=== PATIENT | male | born 1990 | race Caucasian/White ===

== ENCOUNTER 2018-03-15 18:14 | Observation (INO) | payer SELFPAY ==
[2018-03-15] MEDS ORDERED: Sodium Chloride 0.9% 1,000 ML IV STA (18:41)
--- NOTE | 2018-03-15 19:03 | ED PDOC ---
HPI: Trauma/Fall - HPI Time Seen by Provider: 03/15/18 18:29 Chief Complaint (Nursing): Abnormal Skin Integrity Chief Complaint (Provider): Abnormal Skin Integrity History Per: Family History/Exam Limitations: no limitations Onset/Duration Of Symptoms: Days (x6) Injury Occurred (Timing): Days Ago: (6) Additional Complaint(s): 28 y/o male with a PMHx of HTN brought to the ED by family for evaluation of bleeding and drainage from a chest tube placed on the left side. Family states patient was recently admitted in a hospital in [place] on 03/09/2018 and discharged yesterday (03/14/2018) after falling from 2 stories. Noted on discharge report from hospital in [place], patient had multiple injuries including: bleeding between the lungs and chest wall, closed fracture of temporal bone, subdural hematoma, subarachnoid hematoma, fracture of thoracic transverse process, broken collarbone, popped lung, fracture of multiple ribs, cocaine abuse and amphetamine abuse. Family state patient was in a coma, intubated and had a chest tube placed on the left side. Family reports patient is staying with them here in [place] for care due to extensive injuries. Patient is here today for excessive leaking where chest tube was placed. In addition, family states patient's mentation is "off" as the patient is unsure where he is at times and confuses other family members with one another. Patient is currently taking oxycodone, Tylenol and Bactrim. Denies antibiotic use, allergies to medications and diagnosed psychiatric disorders. PMD: Do June Past Medical History Reviewed: Historical Data, Nursing Documentation, Vital Signs Vital Signs: Last Vital Signs Temp 99.4 F 03/15/18 18:22 Pulse 104 H 03/15/18 18:22 Resp 16 03/15/18 18:22 BP 131/85 03/15/18 18:22 Pulse Ox 100 03/15/18 18:22 - Medical History PMH: HTN - Surgical History Surgical History: No Surg Hx - Family History Family History: States: Unknown Family Hx - Social History Drugs: Cocaine - Allergies Allergies/Adverse Reactions: Allergies Allergy/AdvReac Type Severity Reaction Status Date / Time No Known Allergies Allergy Verified 03/15/18 18:22 Review of Systems ROS Statement: Except As Marked, All Systems Reviewed And Found Negative Constitutional: Positive for: Other (Leaking around where chest tube was placed. ) Physical Exam - Physical Exam Appears: Positive for: No Acute Distress Head Exam: Positive for: NORMAL INSPECTION (Multiple abrasions and scabs noted to the left posterior head and face as well as to the right cheek. ) Eye Exam: Positive for: EOMI, PERRL Neck: Positive for: Normal (Non-tender. ) Cardiovascular/Chest: Positive for: Other (Multiple abrasions noted on the chest. Open superficial would with trace like fluid noted around the 4th and 5th rib on the left chest wall. ) Gastrointestinal/Abdominal: Positive for: Other (Multiple abrastion noted on the chest. Superficial open wound with trace like fluid noted around the 4th and 5th lateral rib on the left chest wall. Scabs and abrasions located on the right chest wall. ) Back: Positive for: Other (Multiple abrasions and scabs to the left upper back and triceps) Extremity: Positive for: Normal ROM, Other (Few scattered scabs noted on the bilateral extremities) - Laboratory Results Result Diagrams: 03/15/18 19:02 03/15/18 19:02 Interpretation Of Abn Labs: 14.1 wbc, elevated liver enzymes mild - ECG O2 Sat by Pulse Oximetry: 100 (RA) Pulse Ox Interpretation: Normal - CT Scan/US ct head and chst Other Rad Studies (CT/US): Read By Radiologist Other Rad Interpretation: pneumatocoele post chest tube; no bleed in brain; hx of trauma findings - Progress ED Course And Treament: 2015: Spoke with surgery resident. Will consult with Dr. Cheema. 2055: Dr. Cheema spoke with resident who saw pt. Does not feel any acute treatment needed. Will fu pt. Pt. needs admit for concussion monitoring. 2099: Spoke with Dr. Recinos. Will admit. Tele obs. Medical Decision Making Medical Decision Making: Time: 1839 Plan: -- Urine Drug Screen -- CT Chest w/o contrast -- CT Head w/o contrast -- CXR Portable -- Sodium Chloride IV 1000 mls/hr Time: 1901 Plan: -- Alcohol Serum -- CMP -- Troponin I -- CBC with differentials -- PTT -- Prothrombin Time Time: 2024 CT CHEST RESULTS FINDINGS: Lungs: There is reported history of recent chest tube removal. A tiny amount of air in the left pleural space in the apex. Diffuse alveolar density is noted in the left lower lobe with a small left pleural effusion. More focal soft tissue density containing areas of gas are noted in the left lower lobe suggesting a potential posttraumatic pneumatocele. If there are clinical signs of infection, this could be a abscess as well. Heart: Normal. No cardiomegaly. No pericardial effusion. Aorta: Normal. No aortic aneurysm. Lymph nodes: Unremarkable. No enlarged lymph nodes. Bones/joints: Unremarkable. No acute fracture. Soft tissues: Unremarkable. IMPRESSION: There is reported history of recent chest tube removal. A tiny amount of air in the left pleural space in the apex. Diffuse alveolar density is noted in the left lower lobe with a small left pleural effusion. More focal soft tissue density containing areas of gas are noted in the left lower lobe suggesting a potential posttraumatic pneumatocele. If there are clinical signs of infection, this could be a abscess as well. Thank you for allowing us to participate in the care of your patient. Dictated and Authenticated by: Shaan Carney MD 03/15/2018 8:25 PM Eastern Time ([place] & [place]) Scribe Attestation: Documented by Lorri Dang acting as a scribe for Dr. Ulysses Doan MD. Provider Scribe Attestation: All medical record entries made by the Scribe were at my direction and personally dictated by me. I have reviewed the chart and agree that the record accurately reflects my personal performance of the history, physical exam, medical decision making, and the department course for this patient. I have also personally directed, reviewed, and agree with the discharge instructions and disposition. Disposition - Clinical Impression Clinical Impression: Concussion, Wound drainage - Patient ED Disposition Is Patient to be Admitted: Yes Counseled Patient/Family Regarding: Studies Performed, Diagnosis - Disposition Disposition Time: 21:02 Condition: FAIR - POA Present On Arrival: Falls Or Trauma (hx)
[2018-03-15 19:05] LABS: BASO # 0.1 K/uL (0.0-0.2); BASO % 0.7 % (0.0-2.0); EOS # 0.5 K/uL (0.0-0.7); EOS % 3.6 % (0.0-4.0); HEMOGLOBIN 12.3 g/dL (12.0-18.0); LYMPH # 1.6 K/uL (1.0-4.3); LYMPH % 11.3 % (20.0-40.0); MEAN CELL VOLUME 96.1 fl (80.0-94.0); MEAN CORPUSCULAR HGB CONC 34.4 g/dL (33.0-37.0); MEAN PLATELET VOLUME 8.4 fl (7.2-11.7); MONO # 1.5 K/uL (0.0-0.8); MONO % 10.5 % (0.0-10.0); NEUT # 10.4 K/uL (1.8-7.0); NEUT % 73.9 % (50.0-75.0); RBC 3.72 Mil/uL (4.40-5.90); RED CELL DISTRIBUTION WIDTH 13.7 % (11.5-14.5); WHITE BLOOD COUNT 14.1 K/uL (4.8-10.8)
[2018-03-15 19:12] LABS: INR 1.3
[2018-03-15 19:15] LABS: PARTIAL THROMBOPLASTIN TIME 33.6 Seconds (25.6-37.1)
[2018-03-15 19:33] LABS: ALBUMIN 3.7 g/dL (3.5-5.0); CALCIUM 9.3 mg/dL (8.4-10.2); GFR AFRICAN-AMERICAN > 60; GFR NON-AFRICAN AMERICAN > 60
[2018-03-15 19:39] LABS: ALT/SGPT 218 U/L (21-72); AST/SGOT 232 U/L (17-59); BLOOD UREA NITROGEN 14 mg/dl (9-20)
--- NOTE | 2018-03-15 21:24 | CP.PCM.CON ---
History of Present Illness - History of Present Illness History of Present Illness: CT surgery consult for Dr. Peyman Hoffman, PGY-2 Pt S & E at bedside at 2049 28M w/PMH sig for polytrauma s/p throwing himself off a 2 story structure because "someone was coming to get him" on 03/09- hospitalized in [place] with L chest tube insertion and ETT placement consulted for serosanguious output from left chest tube insertion site. Pt reports that he was discharged from hospital yesterday with Left chest tube removed on day of discharge. Noted to have serosanguinous discharge from insertion site, which increased today. Pt was brought to ED for evaluation of drainage and AMS per sister. Pt reports back pain, chills, weakness. Denies chest pain, SOB, N & V, changes in bowel or bladder habits, other complaints. IN ED- Chest CT w/post traumatic pneumatocele, no pneumothorax. Afebrile, leukocytosis of 14.1. Hgb WNL. CT brain with findings compatible with recent head trauma. 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 absent: Fever - EENT Eyes: absent: Change in Vision Ears: absent: Dizziness Nose/Mouth/Throat: absent: Sore Throat - Cardiovascular Cardiovascular: absent: Chest Pain - Respiratory Respiratory: absent: Cough, Pain on Inspiration - Gastrointestinal Gastrointestinal: absent: Abdominal Pain, Nausea, Vomiting - Genitourinary Genitourinary: absent: Change in Urinary Stream - Musculoskeletal Musculoskeletal: Back Pain. absent: Numbness, Tingling - Integumentary Integumentary: Wounds Additional comments: abdominal wound- superificial over right lower quadrant, approximately 4cm long , visible granulation tissue at base. Small, approximately 2cm x 3 cm superficial wound over epigastric area, with some punctate bleeding Multiple superficial abrasions over anterior chest wall, upper and lower extremities, right lower cheek- most have scabs over them - Neurological Neurological: absent: Numbness - Psychiatric Psychiatric: absent: Change in Appetite Past Patient History - Past Social History Drugs: Cocaine - CARDIAC Hx Hypertension: Yes - PULMONARY Hx Asthma: Yes - PSYCHIATRIC Hx Substance Use: Yes - SURGICAL HISTORY Hx Surgeries: Yes - ANESTHESIA Hx Anesthesia: Yes Hx Anesthesia Reactions: No Meds Allergies/Adverse Reactions: Allergies Allergy/AdvReac Type Severity Reaction Status Date / Time No Known Allergies Allergy Verified 03/15/18 18:22 - Medications Medications: Current Medications Morphine Sulfate (Morphine) 2 mg IV ONCE ONE Stop: 03/15/18 20:54 Physical Exam - Constitutional Appears: Non-toxic, No Acute Distress - Head Exam Head Exam: NORMOCEPHALIC. absent: ATRAUMATIC (multiple scars over face) - Eye Exam Eye Exam: EOMI, Normal appearance - ENT Exam ENT Exam: Mucous Membranes Moist, Normal Exam - Neck Exam Neck exam: Positive for: Full Rom, Normal Inspection - Respiratory Exam Respiratory Exam: Clear to Auscultation Bilateral, NORMAL BREATHING PATTERN. absent: Chest Wall Tenderness Additional comments: left midaxillary line with draining CT incision site- linear wound- serosanguious output staining dressing. Non tender, no erythema noted, no fluctuance or induration - Cardiovascular Exam Cardiovascular Exam: REGULAR RHYTHM, +S1, +S2 - GI/Abdominal Exam GI & Abdominal Exam: Soft. absent: Distended (obese), Firm, Guarding, Tenderness - Extremities Exam Extremities exam: Negative for: normal inspection (multiple abrasions and small superficial wounds with scabs over bilateral upper and lower extremities) - Neurological Exam Neurological exam: Alert, CN II-XII Intact, Oriented x3 - Psychiatric Exam Psychiatric exam: Normal Affect, Normal Mood - Skin Skin Exam: Dry, Warm Additional comments: see other systems for skin findings Results - Vital Signs Recent Vital Signs: Last Vital Signs Temp 99.4 F 03/15/18 18:22 Pulse 104 H 03/15/18 18:22 Resp 18 03/15/18 20:30 BP 137/78 03/15/18 20:30 Pulse Ox 100 03/15/18 21:02 - Labs Result Diagrams: 03/15/18 19:02 03/15/18 19:02 Labs: Laboratory Results - last 24 hr 03/15/18 03/15/18 03/15/18 19:02 19:02 19:02 WBC 14.1 H RBC 3.72 L Hgb 12.3 Hct 35.8 MCV 96.1 H MCH 33.0 H MCHC 34.4 RDW 13.7 Plt Count 381 MPV 8.4 Neut % (Auto) 73.9 Lymph % (Auto) 11.3 L [place] % (Auto) 10.5 H Eos % (Auto) 3.6 Baso % (Auto) 0.7 Neut # (Auto) 10.4 H Lymph # (Auto) 1.6 [place] # (Auto) 1.5 H Eos # (Auto) 0.5 Baso # (Auto) 0.1 PT 14.0 H INR 1.3 APTT 33.6 Sodium 137 Potassium 3.9 Chloride 98 Carbon Dioxide 31 H Anion Gap 12 BUN 14 Creatinine 0.6 L Est GFR ( Amer) > 60 Est GFR (Non-Af Amer) > 60 Random Glucose 103 Calcium 9.3 Total Bilirubin 1.6 H AST 232 H ALT 218 H Alkaline Phosphatase 157 H Troponin I < 0.0120 Total Protein 7.6 Albumin 3.7 Globulin 3.9 Albumin/Globulin Ratio 1.0 Alcohol, Quantitative < 10 Assessment & Plan - Assessment and Plan (Free Text) Assessment: 28 M w/leaking CT insertion site s/p polytrauma with resulting Left sided pneumothorax Plan: Admit to medicine for obs No CT surgical intervention at this time Dressing changes PRN Further mgmt as per primary team JULIANA attending Yasmin, PGY-2 - Date & Time Date: 03/15/18 Time: 20:40
[2018-03-16 00:27] LABS: BARBITURATES, UR NEGATIVE (NEGATIVE); BENZODIAZEPINES, UR NEGATIVE (NEGATIVE); OPIATES, UR POSITIVE (NEGATIVE); PHENCYCLIDINE, UR POSITIVE (NEGATIVE)
[2018-03-16] MEDS ORDERED: Pneumococcal 23-Valent Vaccine IM ONE (06:30)
--- NOTE | 2018-03-16 06:43 | CP.PCM.PCO ---
Physician Communication Note - Physician Communication Note Physician Communication Note: I was called by RN for headache and back pain Assessment/Plan - Assessment and Plan (Free Text) Assessment: S: 28 y/o M s/p fall, c/o headache and back pain, 710 severity. Last morphine 2mg was given at 3:00 am O: AAO, verbally responsive, follows command A/P: 28 y/o male s/p fall - Morphine 1mg STAT - Continue management as per admitting attending
[2018-03-16 07:06] LABS: HEMOGLOBIN 11.1 g/dL (12.0-18.0); MEAN CELL VOLUME 96.6 fl (80.0-94.0); MEAN CORPUSCULAR HEMOGLOBIN 32.6 pg (27.0-31.0); MEAN CORPUSCULAR HGB CONC 33.7 g/dL (33.0-37.0); RBC 3.42 Mil/uL (4.40-5.90); RED CELL DISTRIBUTION WIDTH 13.8 % (11.5-14.5); WHITE BLOOD COUNT 13.4 K/uL (4.8-10.8)
[2018-03-16 07:19] LABS: ALB/GLOB RATIO 0.9 (1.0-2.1); ALBUMIN 3.2 g/dL (3.5-5.0); ALT/SGPT 185 U/L (21-72); AST/SGOT 153 U/L (17-59); BLOOD UREA NITROGEN 8 mg/dl (9-20); CALCIUM 8.7 mg/dL (8.4-10.2); GFR AFRICAN-AMERICAN > 60; GFR NON-AFRICAN AMERICAN > 60
[2018-03-16] MEDS ORDERED: oxyCODONE 10 mg ER Tab (oxyCONTIN) PO PRN (07:39)
[2018-03-16] MEDS ORDERED: oxyCODONE 5 mg Immediate Release Tab PO PRN (07:40)
--- NOTE | 2018-03-16 07:45 | CP.PCM.PN ---
Subjective - Date & Time of Evaluation Date of Evaluation: 03/16/18 Time of Evaluation: 07:44 - Subjective Subjective: CT surgery progress note for Dr. Peyman Hoffman, PGY-2 Pt S & E at bedside at 0700 Pt reports CALL and back pain. Denies N & V, F & C, chest pain, SOB. Per nursing - continues with saturating drainage from Left chest tube insertion site. Has been getting pain medications throughout night regularly Objective - Vital Signs/Intake and Output Vital Signs (last 24 hours): Temp Pulse Resp BP Pulse Ox 99 F 90 18 127/73 97 03/16/18 05:00 03/16/18 05:00 03/16/18 05:00 03/16/18 05:00 03/16/18 05:00 - Medications Medications: Current Medications Acetaminophen (Tylenol 325mg Tab) 650 mg PO Q4 PRN PRN Reason: Pain, Mild (1-3), headache Docusate Sodium (Colace) 100 mg PO DAILY PRN PRN Reason: Constipation Enoxaparin Sodium (Lovenox) 40 mg SC DAILY KVNG PRN Reason: Protocol Oxycodone HCl (Oxycontin Extended Release Tab) 10 mg PO Q12 PRN PRN Reason: Pain, moderate (4-7) Stop: 03/19/18 09:01 Oxycodone HCl (Oxycodone Immediate Release Tab) 5 mg PO Q6 PRN PRN Reason: for breakthrough pain - Labs Labs: 03/16/18 05:24 03/16/18 05:24 PT 14.0 Seconds (9.8-13.1) H 03/15/18 19:02 INR 1.3 03/15/18 19:02 APTT 33.6 Seconds (25.6-37.1) 03/15/18 19:02 - Constitutional Appears: Non-toxic, No Acute Distress - Head Exam Head Exam: absent: ATRAUMATIC, NORMAL INSPECTION Additional comments: multiple superficial skin lacs with scabs - Eye Exam Eye Exam: EOMI, Normal appearance - ENT Exam ENT Exam: Mucous Membranes Moist, Normal Exam - Neck Exam Neck Exam: Full ROM, Normal Inspection - Respiratory Exam Respiratory Exam: NORMAL BREATHING PATTERN Additional comments: Left chest wall midaxillary line with incision draining serosanguinous output to dressing- dressing clean/dry/intact, non tender - Cardiovascular Exam Cardiovascular Exam: REGULAR RHYTHM, +S1, +S2 - GI/Abdominal Exam GI & Abdominal Exam: absent: Distended (obese), Firm, Guarding, Rigid, Soft, Tenderness Additional comments: superficial skin wound in RLQ with dressing in place- wound with granulation tissue; bandaid is clean and dry/intact Superficial skin tear over epigastric area- dressing in place- clean/dry/intact - Extremities Exam Additional comments: multiple superficial skin lacerations and abrasions over bilateral upper and lower extremities with scabs in place - Neurological Exam Neurological Exam: Alert, Awake, Oriented x3 - Psychiatric Exam Psychiatric exam: Normal Affect, Normal Mood - Skin Skin Exam: Dry, Normal Color, Warm Assessment and Plan - Assessment and Plan (Free Text) Assessment: 28 M w/leaking CT insertion site s/p polytrauma with resulting Left sided pneumothorax that resolved Plan: Changed pain meds Dressing changes PRN as per nursing Monitor Encourage IS use Continue diet Further mgmt as per primary team Will JULIANA attending Yasmin, PGY-2
--- NOTE | 2018-03-16 08:17 | RAD ---
Date of service: 03/15/2018 HISTORY: dyspnea COMPARISON: No prior. FINDINGS: LUNGS: Question left lower lobe infiltrate versus under penetration. PLEURA: No significant pleural effusion identified, no pneumothorax apparent. CARDIOVASCULAR: Normal. OSSEOUS STRUCTURES: No significant abnormalities. VISUALIZED UPPER ABDOMEN: Normal. OTHER FINDINGS: None. IMPRESSION: Question left lower lobe infiltrate versus under penetration.
[2018-03-16 08:20] VITALS: RESP 20
--- NOTE | 2018-03-16 08:27 | CT ---
Date of service: 03/15/2018 PROCEDURE: CT HEAD WITHOUT CONTRAST. HISTORY: headache COMPARISON: None available. TECHNIQUE: Axial computed tomography images were obtained through the head/brain without intravenous contrast. Radiation dose: Total exam DLP = mGy-cm. This CT exam was performed using one or more of the following dose reduction techniques: Automated exposure control, adjustment of the mA and/or kV according to patient size, and/or use of iterative reconstruction technique. FINDINGS: HEMORRHAGE: No intracranial hemorrhage. BRAIN: Right temporal nonhemorrhagic contusion. No atrophy or chronic microvascular ischemic changes. VENTRICLES: Unremarkable. No hydrocephalus. CALVARIUM: Unremarkable. PARANASAL SINUSES: Unremarkable as visualized. No significant inflammatory changes. MASTOID AIR CELLS: Unremarkable as visualized. No inflammatory changes. OTHER FINDINGS: None. IMPRESSION: Right temporal nonhemorrhagic contusion. Recommend follow-up.
--- NOTE | 2018-03-16 08:30 | CT ---
Date of service: 03/15/2018 PROCEDURE: CT Chest without contrast HISTORY: trauma fu...hx of chst tbe COMPARISON: None available. TECHNIQUE: Contiguous axial images were obtained through the chest without intravenous contrast enhancement. Sagittal and coronal reconstructions were performed. Radiation dose (DLP): mGy-cm. This CT exam was performed using one or more of the following dose reduction techniques: Automated exposure control, adjustment of the mA and/or kV according to patient size, and/or use of iterative reconstruction technique. FINDINGS: LUNGS: Status post chest tube removal with small amount of air in the left pleural space and in the apex. Diffuse alveolar the in the left lower lobe with a small left pleural effusion. Post density containing gas in the left lower lobe suggesting a possible posttraumatic pneumatocele. MEDIASTINUM: Unremarkable thoracic aorta. No aneurysm. Normal sized heart. Main pulmonary artery unremarkable. No vascular congestion. No lymphadenopathy. PLEURA: No pleural fluid. No pneumothorax. BONES: No fracture. No destructive lesion. UPPER ABDOMEN: Grossly unremarkable. OTHER FINDINGS: None. IMPRESSION: Status post chest tube removal with small amount of air in the left pleural space and in the apex. Diffuse alveolar the in the left lower lobe with a small left pleural effusion. Post density containing gas in the left lower lobe suggesting a possible posttraumatic pneumatocele.
[2018-03-16] MEDS ORDERED: Enoxaparin 40 mg Syringe SC SCH (09:00)
[2018-03-16 12:01] VITALS: BP 121/80; PULSE 87; TEMP 98.9; O2SAT 94
--- NOTE | 2018-03-16 13:46 | CP.PCM.HP ---
Past Patient History - Past Medical History & Family History Past Medical History?: Yes - Past Social History Smoking Status: Light Smoker < 10 Cigarettes Daily - CARDIAC Hx Hypertension: Yes - PULMONARY Hx Asthma: Yes - MUSCULOSKELETAL/RHEUMATOLOGICAL Hx Falls: Yes - PSYCHIATRIC Hx Substance Use: Yes (cocaine,Phencyclidine) - SURGICAL HISTORY Hx Surgeries: Yes Other/Comment: left chest tube insertion 03/09/2018 - ANESTHESIA Hx Anesthesia: Yes Hx Anesthesia Reactions: No Meds Allergies/Adverse Reactions: Allergies Allergy/AdvReac Type Severity Reaction Status Date / Time No Known Allergies Allergy Verified 03/15/18 18:22 Results - Vital Signs Recent Vital Signs: Last Vital Signs Temp 98.9 F 03/16/18 12:00 Pulse 87 03/16/18 12:00 Resp 20 03/16/18 12:00 BP 121/80 03/16/18 12:00 Pulse Ox 94 L 03/16/18 12:00 - Labs Result Diagrams: 03/16/18 05:24 03/16/18 05:24 Labs: Laboratory Results - last 24 hr 03/15/18 03/15/18 03/15/18 19:02 19:02 19:02 WBC 14.1 H RBC 3.72 L Hgb 12.3 Hct 35.8 MCV 96.1 H MCH 33.0 H MCHC 34.4 RDW 13.7 Plt Count 381 MPV 8.4 Neut % (Auto) 73.9 Lymph % (Auto) 11.3 L [place] % (Auto) 10.5 H Eos % (Auto) 3.6 Baso % (Auto) 0.7 Neut # (Auto) 10.4 H Lymph # (Auto) 1.6 [place] # (Auto) 1.5 H Eos # (Auto) 0.5 Baso # (Auto) 0.1 PT 14.0 H INR 1.3 APTT 33.6 Sodium 137 Potassium 3.9 Chloride 98 Carbon Dioxide 31 H Anion Gap 12 BUN 14 Creatinine 0.6 L Est GFR ( Amer) > 60 Est GFR (Non-Af Amer) > 60 Random Glucose 103 Calcium 9.3 Total Bilirubin 1.6 H AST 232 H ALT 218 H Alkaline Phosphatase 157 H Troponin I < 0.0120 Total Protein 7.6 Albumin 3.7 Globulin 3.9 Albumin/Globulin Ratio 1.0 Urine Opiates Screen Urine Methadone Screen Ur Barbiturates Screen Ur Phencyclidine Scrn Ur Amphetamines Screen U Benzodiazepines Scrn U Oth Cocaine Metabols U Cannabinoids Screen Alcohol, Quantitative < 10 03/15/18 03/16/18 03/16/18 23:50 05:24 05:24 WBC 13.4 H RBC 3.42 L Hgb 11.1 L Hct 33.0 L MCV 96.6 H MCH 32.6 H MCHC 33.7 RDW 13.8 Plt Count 378 MPV Neut % (Auto) Lymph % (Auto) [place] % (Auto) Eos % (Auto) Baso % (Auto) Neut # (Auto) Lymph # (Auto) [place] # (Auto) Eos # (Auto) Baso # (Auto) PT INR APTT Sodium 141 Potassium 3.6 Chloride 99 Carbon Dioxide 33 H Anion Gap 13 BUN 8 L Creatinine 0.6 L Est GFR ( Amer) > 60 Est GFR (Non-Af Amer) > 60 Random Glucose 100 Calcium 8.7 Total Bilirubin 1.1 AST 153 H D ALT 185 H Alkaline Phosphatase 149 H Troponin I Total Protein 6.7 Albumin 3.2 L Globulin 3.5 Albumin/Globulin Ratio 0.9 L Urine Opiates Screen Positive H Urine Methadone Screen Negative Ur Barbiturates Screen Negative Ur Phencyclidine Scrn Positive H Ur Amphetamines Screen Negative U Benzodiazepines Scrn Negative U Oth Cocaine Metabols Negative U Cannabinoids Screen Negative Alcohol, Quantitative
--- NOTE | 2018-03-16 14:30 | CP.PCM.PN ---
Subjective - Date & Time of Evaluation Date of Evaluation: 03/16/18 Time of Evaluation: 14:28 - Subjective Subjective: Pt s/e. Chest tube site clean without any drainage. wbc 13k. Concurr with Dr. Gasca recommendation. I would recommend pulm consult. a/p: 1. Posttraumatic pneumatocele. 2. No surgical interventions unless complications arise. 3. Pulmonary consult. 4. d.c to clinic for f/u. 5. d/w Dr Recinos. Objective - Vital Signs/Intake and Output Vital Signs (last 24 hours): Temp Pulse Resp BP Pulse Ox 98.9 F 87 20 121/80 94 L 03/16/18 12:00 03/16/18 12:00 03/16/18 12:00 03/16/18 12:00 03/16/18 12:00 - Medications Medications: Current Medications Acetaminophen (Tylenol 325mg Tab) 650 mg PO Q4 PRN PRN Reason: Pain, Mild (1-3), headache Docusate Sodium (Colace) 100 mg PO DAILY PRN PRN Reason: Constipation Enoxaparin Sodium (Lovenox) 40 mg SC DAILY KVNG PRN Reason: Protocol Last Admin: 03/16/18 14:15 Dose: Not Given Oxycodone HCl (Oxycontin Extended Release Tab) 10 mg PO Q12 PRN PRN Reason: Pain, moderate (4-7) Stop: 03/19/18 09:01 Last Admin: 03/16/18 08:40 Dose: 10 mg Oxycodone HCl (Oxycodone Immediate Release Tab) 5 mg PO Q6 PRN PRN Reason: for breakthrough pain Last Admin: 03/16/18 11:58 Dose: 5 mg - Labs Labs: 03/16/18 05:24 03/16/18 05:24 PT 14.0 Seconds (9.8-13.1) H 03/15/18 19:02 INR 1.3 03/15/18 19:02 APTT 33.6 Seconds (25.6-37.1) 03/15/18 19:02
--- NOTE | 2018-03-17 00:47 | CP.PCM.DIS ---
Provider - Provider Date of Admission: 03/15/18 21:03 Attending physician: Janie Recinos MD Time Spent in preparation of Discharge (in minutes): 25 Hospital Course - Lab Results Lab Results: Most Recent Lab Values WBC 13.4 K/uL (4.8-10.8) H 03/16/18 05:24 RBC 3.42 Mil/uL (4.40-5.90) L 03/16/18 05:24 Hgb 11.1 g/dL (12.0-18.0) L 03/16/18 05:24 Hct 33.0 % (35.0-51.0) L 03/16/18 05:24 MCV 96.6 fl (80.0-94.0) H 03/16/18 05:24 MCH 32.6 pg (27.0-31.0) H 03/16/18 05:24 MCHC 33.7 g/dL (33.0-37.0) 03/16/18 05:24 RDW 13.8 % (11.5-14.5) 03/16/18 05:24 Plt Count 378 K/uL (130-400) 03/16/18 05:24 MPV 8.4 fl (7.2-11.7) 03/15/18 19:02 Neut % (Auto) 73.9 % (50.0-75.0) 03/15/18 19:02 Lymph % (Auto) 11.3 % (20.0-40.0) L 03/15/18 19:02 Dickinson % (Auto) 10.5 % (0.0-10.0) H 03/15/18 19:02 Eos % (Auto) 3.6 % (0.0-4.0) 03/15/18 19:02 Baso % (Auto) 0.7 % (0.0-2.0) 03/15/18 19:02 Neut # (Auto) 10.4 K/uL (1.8-7.0) H 03/15/18 19:02 Lymph # (Auto) 1.6 K/uL (1.0-4.3) 03/15/18 19:02 Dickinson # (Auto) 1.5 K/uL (0.0-0.8) H 03/15/18 19:02 Eos # (Auto) 0.5 K/uL (0.0-0.7) 03/15/18 19:02 Baso # (Auto) 0.1 K/uL (0.0-0.2) 03/15/18 19:02 PT 14.0 Seconds (9.8-13.1) H 03/15/18 19:02 INR 1.3 03/15/18 19:02 APTT 33.6 Seconds (25.6-37.1) 03/15/18 19:02 Sodium 141 mmol/l (132-148) 03/16/18 05:24 Potassium 3.6 MMOL/L (3.6-5.0) 03/16/18 05:24 Chloride 99 mmol/L (98-107) 03/16/18 05:24 Carbon Dioxide 33 mmol/L (22-30) H 03/16/18 05:24 Anion Gap 13 (10-20) 03/16/18 05:24 BUN 8 mg/dl (9-20) L 03/16/18 05:24 Creatinine 0.6 mg/dl (0.8-1.5) L 03/16/18 05:24 Est GFR ( Amer) > 60 03/16/18 05:24 Est GFR (Non-Af Amer) > 60 03/16/18 05:24 Random Glucose 100 mg/dL (75-110) 03/16/18 05:24 Calcium 8.7 mg/dL (8.4-10.2) 03/16/18 05:24 Total Bilirubin 1.1 mg/dl (0.2-1.3) 03/16/18 05:24 AST 153 U/L (17-59) H D 03/16/18 05:24 ALT 185 U/L (21-72) H 03/16/18 05:24 Alkaline Phosphatase 149 U/L (38-126) H 03/16/18 05:24 Troponin I < 0.0120 ng/mL (0.00-0.120) 03/15/18 19:02 Total Protein 6.7 G/DL (6.3-8.2) 03/16/18 05:24 Albumin 3.2 g/dL (3.5-5.0) L 03/16/18 05:24 Globulin 3.5 gm/dL (2.2-3.9) 03/16/18 05:24 Albumin/Globulin Ratio 0.9 (1.0-2.1) L 03/16/18 05:24 Urine Opiates Screen Positive (NEGATIVE) H 03/15/18 23:50 Urine Methadone Screen Negative (NEGATIVE) 03/15/18 23:50 Ur Barbiturates Screen Negative (NEGATIVE) 03/15/18 23:50 Ur Phencyclidine Scrn Positive (NEGATIVE) H 03/15/18 23:50 Ur Amphetamines Screen Negative (NEGATIVE) 03/15/18 23:50 U Benzodiazepines Scrn Negative (NEGATIVE) 03/15/18 23:50 U Oth Cocaine Metabols Negative (NEGATIVE) 03/15/18 23:50 U Cannabinoids Screen Negative (NEGATIVE) 03/15/18 23:50 Alcohol, Quantitative < 10 mg/dl (0-10) 03/15/18 19:02 Discharge Exam - Head Exam Head Exam: absent: ATRAUMATIC, NORMAL INSPECTION Discharge Plan - Follow Up Plan Condition: FAIR Disposition: HOME/ ROUTINE
== END 2018-03-16 14:30 | disposition home or self-care (01) ==
LOC: H.ER 18:14 → H.ERHOLD 21:03 → H.TEL 03-16 00:10
PROVIDERS: ADMIT Internal Medicine; ATTEND Internal Medicine
DX: T85.638A Leakage of other specified internal prosthetic devices, implants and grafts, initial encounter (principal); T85.9XXA Unspecified complication of internal prosthetic device, implant and graft, initial encounter; Y83.9 Surgical procedure, unspecified as the cause of abnormal reaction of the patient, or of later complication, without mention of misadventure at the time of the procedure; Y92.9 Unspecified place or not applicable; Z87.891 Personal history of nicotine dependence; F14.10 Cocaine abuse, uncomplicated; F15.10 Other stimulant abuse, uncomplicated; R41.82 Altered mental status, unspecified; R51 Headache; D72.829 Elevated white blood cell count, unspecified; I10 Essential (primary) hypertension; J45.909 Unspecified asthma, uncomplicated; J98.4 Other disorders of lung; Z23 Encounter for immunization; Z91.81 History of falling; Z87.828 Personal history of other (healed) physical injury and trauma
CPT/HCPCS: 36415; 70450; 71045; 71250; 80053; 84484; 85025; 85027; 85610; 85730; 90732; 99285; G0009; G0378; G0480; J2270; J7030